=== PATIENT | female | born 1970 | race Two or more races ===

== ENCOUNTER 2017-01-07 11:43 | Day surgery (SDC) | payer BC ==
[~2017-01-07] VITALS: Ht 162.6 cm; Wt 65.3 kg
[~2017-01-07 11:43] MED LIST: LOVASTATIN; PANTOPRAZOLE
[2017-01-07] MEDS ORDERED: CHOL400T10 PO (12:56)
[2017-01-07] MEDS ORDERED: FAMO20TA18 PO (12:56)
[2017-01-07 13:00] VITALS: Ht 162.6 cm; Wt 65.3 kg
[2017-01-07] MEDS ORDERED: MIDAZOLAM 1 MG/ML 2 ML INJ ONE (13:23)
[2017-01-07] MEDS ORDERED: LIDOCAINE 2% (SDV) 5 ML INJ ONE (13:23)
[2017-01-07] MEDS ORDERED: PROPOFOL 20 ML ONE (13:23)
[2017-01-07 13:26] VITALS: BP 113/75; PULSE 78; RESP 18
[2017-01-07 14:40] VITALS: BP 111/76; PULSE 68; RESP 15
--- NOTE | 2017-01-07 14:43 | GILP ---
DATE OF PROCEDURE: 01/07/2017 NAME OF PROCEDURE: Esophagogastroduodenoscopy with biopsies. SURGEON: Lakia Merritt MD. HISTORY AND INDICATIONS: History of prepyloric gastric ulceration and findings consistent with Crohn 's Disease of the small bowel. PREMEDICATION: Monitored anesthesia care by anesthesiologist. INSTRUMENT USED: Olympus esparza endoscope. TECHNIQUE: After informed consent, with the patient/relatives understanding the procedure, its indic ations, potential risks and complications, including but not limited to: allergic reaction, bleeding , perforation or infection, and after all pertinent questions were answered to the patients satisfac tion, the patient/relatives signed witnessed informed consent. Following this, premedication was administered slowly IV push under careful cardiovascular and respi ratory monitoring with pulse oximetry, automatic blood pressure and bus driver/monitor. Once the sedative effect was achieved the patient was place in the left lateral decubitus, the panen doscope was introduced and advanced under visual control. Careful examination of the upper gastrointestinal tract, both on insertion as well as withdrawal of the instrument disclosed the following findings: ESOPHAGUS: The distal esophagus shows erythema and edema of the mucosa of a moderate degree. STOMACH: Upon entrance to the stomach air was insufflated, the gastric hernandez distended normally. The previously noted gastric ulcerations healed partially with residual erythema and edema of the mucos a as well as superficial erosion. Biopsies were obtained to rule out H. pylori infection. PYLORUS: The pylorus appears patent and within normal limits. DUODENUM: The duodenum shows slight congestion and erythema. Biopsies were obtained in the second portion of the duodenum to rule out evidence of inflammatory bowel disease. IMPRESSION: 1. Distal esophagitis. 2. Healed gastric ulcer. 3. Erosive gastritis. 4. Rule out Crohn's Disease. Small bowel biopsies were obtained. PLAN: The patient will be continued on present regimen. Further recommendations will depend on the patient's clinical course as well as review of biopsies. Dictated By: LAKIA MERRITT MS/CLAUDIO Conf#: [id number] DID#: [id number] CC: LAKIA MERRITT;*EndCC*
== END 2017-01-07 17:13 | disposition home or self-care (01) ==
LOC: GIL 11:43
PROVIDERS: ATTEND Internal Medicine Gastroenterology
DX: K29.30 Chronic superficial gastritis without bleeding (principal); K20.8 Other esophagitis; E78.5 Hyperlipidemia, unspecified
CPT/HCPCS: 43239; 84703; 88305; 88312; J2250; Z7610

== ENCOUNTER 2017-09-10 07:51 | Day surgery (SDC) | END 2017-09-10 14:31 | disposition home or self-care (01) ==

== ENCOUNTER 2017-10-22 07:55 | Day surgery (SDC) | END 2017-10-22 11:12 | disposition home or self-care (01) ==